=== PATIENT | male | born 1930 | race Hispanic/Latino ===

== ENCOUNTER → 2017-08-07 | Outpatient (CLI) | payer OTHER | END | disposition home or self-care (01) | LOC: OIH 15:04 | PROVIDERS: ATTEND Family Medicine | DX: I10 Essential (primary) hypertension (principal); M47.895 Other spondylosis, thoracolumbar region | CPT/HCPCS: 71046 ==

== ENCOUNTER → 2018-01-12 | Outpatient (CLI) | payer OTHER ==
[2018-01-12 11:22] LABS: CREATININE 1.4 mg/dL (0.5-1.5)
== END | disposition home or self-care (01) ==
LOC: LAB 10:32
PROVIDERS: ATTEND Urology
DX: D30.00 Benign neoplasm of unspecified kidney (principal)
CPT/HCPCS: 36415; 82565; 84520

== ENCOUNTER → 2018-03-03 | Outpatient (CLI) | payer OTHER | END | disposition home or self-care (01) | LOC: OIH 10:54 | PROVIDERS: ATTEND Family Medicine | DX: M47.896 Other spondylosis, lumbar region (principal) | CPT/HCPCS: 72100 ==

== ENCOUNTER → 2018-05-15 | Outpatient (CLI) | payer OTHER | END | disposition home or self-care (01) | LOC: OIH 10:26 | PROVIDERS: ATTEND Family Medicine | DX: R07.81 Pleurodynia (principal); M94.0 Chondrocostal junction syndrome [Tietze] | CPT/HCPCS: 71100 ==